=== PATIENT | female | born 1950 | race Caucasian/White ===

== ENCOUNTER 2018-02-08 09:10 | Observation (INO) | payer MEDICARE, OTHER ==
[~2018-02-08] VITALS: Ht 157.5 cm; Wt 76.0 kg
[~2018-02-08 09:10] MED LIST: BUPIVACAINE/PF 0.5% ONE; EPINEPHRINE 1 MG/ML, 1ML ONE; LIDOCAINE/PF 1%, 30ML ONE
[2018-02-08] MEDS ORDERED: LEVO75TA5 PO (09:45)
[2018-02-08] MEDS ORDERED: AMLO1CAP2 PO (09:45)
[2018-02-08] MEDS ORDERED: HYDR12.53 PO (09:45)
[2018-02-08] MEDS ORDERED: FLUO20CA8 PO (09:45)
[2018-02-08] MEDS ORDERED: CALC-112 PO (09:45)
[2018-02-08] MEDS ORDERED: LACTATED RINGERS 1,000 ML IV SCH ×2 (09:48→09:53)
[2018-02-08] MEDS ORDERED: CLINDAMYCIN 150 MG/ML, 6ML ONE (09:49)
[2018-02-08] MEDS ORDERED: PROMETHAZINE 25 MG/ML, 1ML IV PRN (10:00)
[2018-02-08] MEDS: PLEASE ENTER HEIGHT AND WEIGHT MC SCH ×2 (10:00→18:00)
[2018-02-08] MEDS ORDERED: PLEASE ENTER ALLERGIES MC SCH (10:00)
[2018-02-08] MEDS ORDERED: OXYcodone 5 MG/5 ML ORAL.SOL UDC PO PRN (10:00)
[2018-02-08] MEDS ORDERED: METOPROLOL 1 MG/ML, 5ML IV PRN (10:00)
[2018-02-08] MEDS ORDERED: ACETAMINOPHEN 325 MG TABLET PO PRN (10:00)
[2018-02-08] MEDS ORDERED: MEPERIDINE/PF 25MG/0.5ML IVPush PRN (10:00)
[2018-02-08] MEDS ORDERED: ONDANSETRON 2MG/ML, 2ML IVPush PRN (10:00)
[2018-02-08] MEDS ORDERED: EPHEDRINE 50 MG/ML, 1ML IVPush PRN (10:00)
[2018-02-08] MEDS ORDERED: hydrALAzine 20 MG/ML, 1ML IV PRN (10:00)
[2018-02-08] MEDS ORDERED: LABETALOL 5MG/ML, 20ML IV PRN (10:00)
[2018-02-08] MEDS ORDERED: ALBUTEROL SULFATE 2.5 MG/3 ML NPPB PRN (10:00)
[2018-02-08 10:03] VITALS: BP 161/91
[2018-02-08] MEDS ORDERED: MIDAZOLAM 1 MG/ML, 2ML ONE (10:13)
[2018-02-08] MEDS ORDERED: FENTANYL PF 100 MCG/2ML ONE ×4 (10:13→13:41)
[2018-02-08] MEDS ORDERED: PROPOFOL 10 MG/ML, 20ML ONE (10:18)
[2018-02-08] MEDS ORDERED: ONDANSETRON ODT 8 MG ONE (10:18)
[2018-02-08] MEDS ORDERED: ROCURONIUM 10MG/ML,5ML ONE ×2 (10:18)
[2018-02-08] MEDS ORDERED: CEFAZOLIN 1,000 MG ONE (10:18)
[2018-02-08] MEDS ORDERED: DEXAMETHASONE 4 MG/ML, 1ML ONE (10:18)
[2018-02-08 10:27] LABS: BASOPHILS # (AUTO) 0.05 x10^3/uL (0-0.1); BASOPHILS % (AUTO) 1 % (0-1); EOSINOPHILS # (AUTO) 0.13 x10^3/uL (0-0.4); EOSINOPHILS % (AUTO) 2 % (1-7); LYMPHOCYTES # (AUTO) 1.66 x10^3/uL (1-3.4); LYMPHOCYTES % (AUTO) 24 % (22-44); MD NO; MEAN CORPUSCULAR HEMOGLOBIN 30.6 pg (27.0-34.8); MEAN CORPUSCULAR HGB CONC 33.6 g/dL (32.4-35.8); MEAN PLATELET VOLUME 7.2 fL (7.4-10.4); MONOCYTES # (AUTO) 0.46 x10^3/uL (0.2-0.8); MONOCYTES % (AUTO) 7 % (2-9); NEUTROPHILS # (AUTO) 4.78 x10^3/uL (1.8-6.8); NEUTROPHILS % (AUTO) 68 % (42-75); PLATELET COUNT 230 x10^3/uL (130-400); RED BLOOD COUNT 4.66 x10^6/uL (3.82-5.3); RED CELL DISTRIBUTION WIDTH 13.8 % (9.6-15.2)
[2018-02-08] MEDS ORDERED: D5%-0.45% NACL 1,000 ML IV SCH (10:35)
[2018-02-08 10:37] LABS: MICROSCOPIC NOT IND
[2018-02-08 10:38] LABS: ALANINE AMINOTRANSFERASE 37 U/L (12-78); ALBUMIN 3.6 g/dL (3.4-5.0); ANION GAP 7 mmol/L (5-15); CALCIUM 8.9 mg/dL (8.5-10.1); CHLORIDE 107 mmol/L (98-107)
[2018-02-08 10:39] LABS: CULTURE INDICATED? NO
[2018-02-08 10:41] LABS: ALKALINE PHOSPHATASE 133 U/L (45-117); BILIRUBIN,TOTAL 0.5 mg/dL (0.2-1.0); CREATININE 0.95 mg/dL (0.55-1.02); TOTAL PROTEIN 6.9 g/dL (6.4-8.2)
[2018-02-08] MEDS ORDERED: GLYCOPYRROLATE 0.2MG/1ML, 5ML ONE (10:49)
[2018-02-08] MEDS ORDERED: NEOSTIGMINE 1 MG/ML, 10ML ONE (10:49)
[2018-02-08] MEDS: HYDROcodone/APAP 10/325 MG TABLET PO SCH ×2 (11:00→17:00)
[2018-02-08] MEDS ORDERED: PROMETHAZINE 25 MG/ML, 1ML IM PRN (11:00)
[2018-02-08] MEDS ORDERED: SENNA/DOCUSATE TABLET PO PRN (11:00)
[2018-02-08] MEDS ORDERED: ONDANSETRON 2MG/ML, 2ML IV PRN (11:00)
[2018-02-08] MEDS: CEFAZOLIN PMX 1GM/50ML 50 ML IVPB SCH ×2 (11:00→18:53)
[2018-02-08] MEDS ORDERED: MAGNESIUM HYDROXIDE 8%, 30ML UDC PO PRN (11:00)
[2018-02-08] MEDS ORDERED: BISACODYL 10 MG SUPP PR PRN (11:00)
[2018-02-08] MEDS ORDERED: DIPHENHYDRAMINE 25 MG CAPSULE PO PRN (11:00)
[2018-02-08] MEDS ORDERED: HYDROmorphone 1 MG/ML, 1ML IV PRN (11:00)
[2018-02-08] MEDS: FENTANYL PF 100 MCG/2ML IV PRN ×3 (13:00→13:44)
[2018-02-08] MEDS ORDERED: OXYcodone 5 MG/5 ML ORAL.SOL UDC ONE (13:09)
[2018-02-08 14:15] VITALS: BP 115/67
[2018-02-08] MEDS: KETOROLAC 30 MG/1 ML IV SCH ×2 (15:53→18:53)
[2018-02-08] MEDS ORDERED: DOCUSATE 100 MG CAPSULE PO SCH (21:00)
[2018-02-09] MEDS ORDERED: LEVOTHYROXINE 75 MCG TABLET PO SCH (09:00)
[2018-02-09] MEDS ORDERED: BENAZEPRIL 20 MG TABLET PO SCH (09:00)
[2018-02-09] MEDS ORDERED: HYDROCHLOROTHIAZIDE 12.5 MG CAPSULE PO SCH (09:00)
[2018-02-09] MEDS ORDERED: CALCIUM/VITAMIN D3 250-125 TABLET PO SCH (09:00)
[2018-02-09] MEDS ORDERED: FLUOXETINE HCL 20 MG CAPSULE PO SCH (09:00)
[2018-02-09] MEDS ORDERED: AMLODIPINE 5 MG TABLET PO SCH (09:00)
== END 2018-02-08 19:00 | disposition home or self-care (01) ==
LOC: INTOOBSV 09:32 → ORIP 09:32 → EDSTATUS 11:45 → 4NOR 14:10
PROVIDERS: ADMIT Orthopaedic Surgery; ATTEND Orthopaedic Surgery
DX: T85.898A Other specified complication of other internal prosthetic devices, implants and grafts, initial encounter (principal); M87.9 Osteonecrosis, unspecified; M12.9 Arthropathy, unspecified; M65.9 Synovitis and tenosynovitis, unspecified; M75.101 Unspecified rotator cuff tear or rupture of right shoulder, not specified as traumatic; E03.9 Hypothyroidism, unspecified; F32.9 Major depressive disorder, single episode, unspecified; Y92.89 Other specified places as the place of occurrence of the external cause
CPT/HCPCS: 23412; 23474; 36415; 73020; 80053; 81003; 85025; 93005; 96374; C1713; C1769; C1776; G0378; J0690; J1100; J1885; J2250; J2704; J2710; J3010; J7120; Q0162; J0171; J3490